=== PATIENT | female | born 1980 | race Caucasian/White ===

== ENCOUNTER 2017-08-20 10:24 | Emergency (ER) | payer MEDICAID ==
[~2017-08-20] VITALS: Ht 167.6 cm; Wt 68.0 kg
[2017-08-20] MEDS ORDERED: BACITRACIN ZINC OINT UDPKT TOP ONE (11:45)
[2017-08-20] MEDS ORDERED: ACETAMINOPHEN WITH CODEINE 300/30MG TABLET PO ONE (11:45)
[2017-08-20] MEDS ORDERED: KETOROLAC 60MG/2ML VIAL IM ONE (11:45)
[2017-08-20 12:45] VITALS: BP 112/66
== END 2017-08-20 12:49 | disposition home or self-care (01) ==
LOC: ER 10:32
DX: S90.812A Abrasion, left foot, initial encounter (principal); V09.9XXA Pedestrian injured in unspecified transport accident, initial encounter; Y93.89 Activity, other specified; Y92.89 Other specified places as the place of occurrence of the external cause
CPT/HCPCS: 73630; 96372; 99284; J1885; Z7610